=== PATIENT | female | born 1945 | race Caucasian/White ===

== ENCOUNTER → 2017-05-16 | Emergency (ER) | payer OTHER ==
[~2017-05-16] VITALS: Ht 167.6 cm; Wt 90.7 kg
[~2017-05-16] MED LIST: LOSARTAN-HCTZ1 EAC2; METOPROLOL SUCC50 MG; NORVASC5 MG; TOBRADEX EYE DR10 ML OP
== END | disposition home or self-care (01) ==
LOC: ER 19:30
DX: T26.12XA Burn of cornea and conjunctival sac, left eye, initial encounter (principal); T49.6X1A Poisoning by otorhinolaryngological drugs and preparations, accidental (unintentional), initial encounter; Y93.89 Activity, other specified; Y92.89 Other specified places as the place of occurrence of the external cause; Y99.8 Other external cause status

== ENCOUNTER 2018-03-28 09:42 | Outpatient (CLI) | payer OTHER ==
[~2018-03-28 09:42] MED LIST changes: +HYZAAR 100-121 UDTAB PO; +LEXAPRO5 MG PO; +LOPRESSOR25 MG PO; +PLAVIX75 MG PO; +SYNTHROID112 MCG PO
== END 2018-03-28 09:45 | disposition home or self-care (01) ==
LOC: SONOGRAMA 09:42
DX: E04.1 Nontoxic single thyroid nodule (principal)

== ENCOUNTER → 2018-06-28 | Outpatient (CLI) | payer OTHER | END | disposition home or self-care (01) | LOC: NUCLEAR 06-21 07:00 | DX: I20.9 Angina pectoris, unspecified (principal); I65.29 Occlusion and stenosis of unspecified carotid artery | CPT/HCPCS: 78452; 93017; 93880; A9500; J0153 ==

== ENCOUNTER 2019-10-28 08:53 | Outpatient (CLI) | payer OTHER | END 2019-10-28 09:00 | disposition home or self-care (01) | LOC: NUCLEAR 08:53 | PROVIDERS: ATTEND Internal Medicine Cardiovascular Disease | DX: I65.23 Occlusion and stenosis of bilateral carotid arteries (principal) ==

== ENCOUNTER 2020-05-05 14:31 | Outpatient (CLI) | payer OTHER | END 2020-05-05 14:37 | disposition home or self-care (01) | LOC: TOM 14:31 | PROVIDERS: ATTEND Specialist | DX: R05 Cough (principal); I70.298 Other atherosclerosis of native arteries of extremities, other extremity ==

== ENCOUNTER → 2021-03-09 | Outpatient (CLI) | payer OTHER | END | disposition home or self-care (01) | LOC: SONOGRAMA 12:47 | PROVIDERS: ATTEND Physical Medicine & Rehabilitation | DX: M79.671 Pain in right foot (principal); M25.474 Effusion, right foot ==

== ENCOUNTER 2021-08-03 11:12 | Outpatient (CLI) | payer OTHER | END 2021-08-03 11:13 | disposition home or self-care (01) | LOC: NUCLEAR 11:12 | PROVIDERS: ATTEND Internal Medicine Cardiovascular Disease | DX: R55 Syncope and collapse (principal) ==

== ENCOUNTER 2021-08-15 13:19 | Outpatient (CLI) | payer OTHER | END 2021-08-15 13:25 | disposition home or self-care (01) | LOC: RAD 13:19 | PROVIDERS: ATTEND Physical Medicine & Rehabilitation | DX: M25.561 Pain in right knee (principal) ==

== ENCOUNTER 2021-11-07 14:31 | Outpatient (CLI) | payer OTHER | END 2021-11-07 14:35 | disposition home or self-care (01) | LOC: RAD 14:31 | PROVIDERS: ATTEND Physical Medicine & Rehabilitation | DX: M25.552 Pain in left hip (principal); M54.59 Other low back pain ==

== ENCOUNTER 2022-06-29 13:44 | Outpatient (CLI) | payer OTHER | END 2022-06-29 13:47 | disposition home or self-care (01) | LOC: RAD 13:44 | PROVIDERS: ATTEND Physical Medicine & Rehabilitation | DX: M79.671 Pain in right foot (principal) ==

== ENCOUNTER 2022-11-27 11:49 | Outpatient (CLI) | payer OTHER | END 2022-11-27 11:55 | disposition home or self-care (01) | LOC: RAD 11:49 | DX: Z96.651 Presence of right artificial knee joint (principal) ==

== ENCOUNTER 2023-10-12 08:14 | Outpatient (CLI) | payer OTHER | END 2023-10-12 10:39 | disposition home or self-care (01) | LOC: NUCLEAR 08:14 | PROVIDERS: ATTEND Internal Medicine Cardiovascular Disease | DX: R55 Syncope and collapse (principal) ==

== ENCOUNTER → 2023-11-02 07:08 | Outpatient (CLI) | payer OTHER | END | disposition home or self-care (01) | LOC: NUCLEAR 07:00 | PROVIDERS: ATTEND Internal Medicine | DX: I25.5 Ischemic cardiomyopathy (principal) | CPT/HCPCS: 78452; 93017; A9500; J0153 ==

== ENCOUNTER 2023-11-16 15:42 | Emergency (ER) | payer OTHER ==
[~2023-11-16] VITALS: Ht 170.2 cm; Wt 90.7 kg
[2023-11-16] MEDS ORDERED: ORPHENADRINE CITRATE 30 MG/ML AMPUL IM STA (18:32)
== END 2023-11-16 18:54 | disposition home or self-care (01) ==
LOC: ER 15:42
DX: R07.9 Chest pain, unspecified (principal); I20.89 Other forms of angina pectoris; V43.52XA Car driver injured in collision with other type car in traffic accident, initial encounter; Y93.89 Activity, other specified; Y92.413 State road as the place of occurrence of the external cause

== ENCOUNTER 2024-05-22 09:22 | Outpatient (CLI) | payer OTHER | END 2024-05-22 09:23 | disposition home or self-care (01) | LOC: SONOGRAMA 09:22 | PROVIDERS: ATTEND Internal Medicine Cardiovascular Disease | DX: E04.1 Nontoxic single thyroid nodule (principal) ==

== ENCOUNTER 2024-06-27 09:52 | Outpatient (CLI) | payer OTHER | END 2024-06-27 10:04 | disposition home or self-care (01) | LOC: SONOGRAMA 09:52 | PROVIDERS: ATTEND Internal Medicine Gastroenterology | DX: R10.9 Unspecified abdominal pain (principal) ==

== ENCOUNTER 2024-08-14 13:15 | Outpatient (CLI) | payer OTHER | END 2024-08-14 13:18 | disposition home or self-care (01) | LOC: RAD 13:15 | PROVIDERS: ATTEND Physical Medicine & Rehabilitation | DX: M25.561 Pain in right knee (principal); M25.562 Pain in left knee ==

== ENCOUNTER 2024-09-04 10:21 | Outpatient (CLI) | payer OTHER | END 2024-09-04 10:27 | disposition home or self-care (01) | LOC: RAD 10:21 | PROVIDERS: ATTEND Orthopaedic Surgery | DX: M25.512 Pain in left shoulder (principal); M25.562 Pain in left knee ==

== ENCOUNTER 2024-09-05 11:59 | Outpatient (CLI) | payer OTHER | END 2024-09-05 12:08 | disposition home or self-care (01) | LOC: RAD 11:59 → SONOGRAMA 11:59 | PROVIDERS: ATTEND Orthopaedic Surgery | DX: M25.512 Pain in left shoulder (principal) ==